=== PATIENT | female | born 1975 | race Caucasian/White ===

== ENCOUNTER → 2017-06-29 | Outpatient (CLI) | payer BC | LOC: MC.RAD 15:07 | DX: Z12.31 Encounter for screening mammogram for malignant neoplasm of breast (principal) ==

== ENCOUNTER → 2018-12-25 | Outpatient (CLI) | payer BC | LOC: COL.RAD 12-24 14:15 | DX: K42.9 Umbilical hernia without obstruction or gangrene (principal) ==

== ENCOUNTER 2018-12-31 05:26 | Day surgery (SDC) | payer BC ==
[2018-12-31] VITALS (7 sets, daily range): BP systolic 125–178; BP diastolic 53–93; PULSE 60–70; TEMP 97.2–98.1
[~2018-12-31] VITALS: Ht 160 cm; Wt 131.1 kg
[2018-12-31] MEDS ORDERED: LISINOP/HCTZ TAB 20- PO (06:12)
[2018-12-31] MEDS ORDERED: BENADRYL25 M2 PO (06:13)
[2018-12-31] MEDS ORDERED: FLONASEALLERGY NS (06:14)
--- NOTE | 2018-12-31 06:15 | NUR ---
TO RM 8 AT 0737- CALL LIGHT IN REACH FAMILY AT BEDSIDE
[2018-12-31] MEDS ORDERED: PERCOCET 325 MG1 TA2 PO (09:36)
[2018-12-31] MEDS ORDERED: MOTRIN 600600 MG/TAB PO (09:37)
--- NOTE | 2018-12-31 09:55 | NUR ---
TO RM 8 PER CART FROM PACU. ALERT ORIENTED X3,C/O PAIN 10/30. DENIES NAUSEA AT THIS TIME. INCISION CLEAN DRY INTACT. CARTWRIGHT SET OVER THE SITE. EATING ICE CHIPS.
--- NOTE | 2018-12-31 10:25 | NUR ---
RECEIVED SPRITE AND CRACKERS.
--- NOTE | 2018-12-31 10:40 | NUR ---
C/O FEELING NAUSEATED. RESTING QUIETLY AND FAMILY AT BEDSIDE.
--- NOTE | 2018-12-31 11:00 | NUR ---
HAD EMESIS IN EMESIS BASIN, GOWN AND ON FLOOR. RECEIVED NEW GOWN AND CLEANED UP.
--- NOTE | 2018-12-31 11:30 | NUR ---
UP AMBULATED TO BATHROOM WITH 2 ASSIST. VOIDED AND TOLERATED WELL.
--- NOTE | 2018-12-31 11:45 | NUR ---
AMBULATED BACK TO BED WITH 2 ASSIST AND TOELRATED WELL. 02 SAT 95% ON ROOM AIR. PATIENT RESTING QUIETLY
--- NOTE | 2018-12-31 12:00 | NUR ---
PATIENT STATED SHE WANTED TO GO HOME.
--- NOTE | 2018-12-31 12:30 | NUR ---
DISCONTINUED IV AND INT- CATHETER INTACT PATIENT GETTING DRESSED
--- NOTE | 2018-12-31 12:45 | NUR ---
AFTER PATIENT GOT DRESSED, BACAME NAUSEATED AND HAD 50-100CC EMESIS. AFTER EMESIS, PATIENT STATED "I STILL WANT TO GO HOME"
--- NOTE | 2018-12-31 13:10 | NUR ---
RECEIVED DISCHARGE INSTRUCTIONS AND VERBALIZED UNDERSTANDING.
--- NOTE | 2018-12-31 13:20 | NUR ---
DISCHARGED PER WC BY NURSING STAFF TO PRIVATE CAR IN CARE OF .
== END 2018-12-31 13:39 | disposition home or self-care (01) ==
LOC: SDCO 05:26
DX: K42.9 Umbilical hernia without obstruction or gangrene (principal); Z79.899 Other long term (current) drug therapy; E66.01 Morbid (severe) obesity due to excess calories; Z68.43 Body mass index [BMI] 50.0-59.9, adult; I10 Essential (primary) hypertension; M54.5 Low back pain; E78.5 Hyperlipidemia, unspecified; F41.9 Anxiety disorder, unspecified; Z82.49 Family history of ischemic heart disease and other diseases of the circulatory system; Z90.49 Acquired absence of other specified parts of digestive tract
CPT/HCPCS: C1781; J0360; J1100; J1170; J1885; J2405; J2704; J3010; J7120